=== PATIENT | male | born 1950 | race Caucasian/White ===

== ENCOUNTER → 2023-06-30 12:53 | Outpatient (REF) | payer MEDICARE, OTHER, SELFPAY | LOC: HWEVLT 12:53 | PROVIDERS: ATTENDING PHYSICIAN Radiology Vascular & Interventional Radiology | DX: I83.893 Varicose veins of bilateral lower extremities with other complications (principal) | CPT/HCPCS: 93970 ==

== ENCOUNTER → 2023-08-19 09:55 | Outpatient (REF) | payer MEDICARE, OTHER, SELFPAY ==
[2023-08-19 12:01] LABS: % Basophils 0.6 % (0-2); % Eosinophils 5.2 % (0-6); % Immature Granulocytes 0.4 % (0-0.5); % Lymphocytes 30.4 % (20.5-51.1); % Monocytes 6.4 % (1.7-9.3); Absolute Eosinophils 0.3 10^3/uL (0-0.7); Absolute Lymphocytes 1.6 10^3/uL (1.2-3.4); Absolute Monocytes 0.3 10^3/uL (0.1-0.6); Hematocrit 37.3 % (39.0-52.0); Hemoglobin 12.5 g/dL (13.0-18.0); Mean Corp Hgb Conc. 33.5 g/dL (33.0-37.0); Mean Corpuscular Hgb 32.7 pg (27.0-31.0); Mean Corpuscular Volume 97.6 fL (80.0-94.0); Mean Platelet Volume 10.9 fL (7.4-10.4); Nucleated Red Blood Cells % 0 % (-); Platelet Count 214 10^3/uL (130-400); Red Blood Cell Count 3.82 10^6/uL (4.70-6.10); Red Cell Dist. Width 14.4 % (11.5-14.5); Reticulocyte Count 1.5 % (0.4-2.8); White Blood Cell Count 5.2 10^3/uL (4.8-10.8)
[2023-08-19 12:16] LABS: Erythrocyte Sed Rate 15 mm/hour (0-20)
[2023-08-19 12:19] LABS: ALT (SGPT) 21 U/L (0-50); AST (SGOT) 29 U/L (17-59); Albumin 4.3 g/dl (3.5-5.0); Alkaline Phosphatase 55 U/L (38-126); Amylase 81 U/L (30-110); Blood Urea Nitrogen 27 mg/dl (9-20); Calcium 9.6 mg/dl (8.4-10.2); Carbon Dioxide 25 mmol/L (22-30); Chloride 107 mmol/L (98-107); Creatine Phosphokinase 118 U/L (55-170); GGTP 14 U/L (15-73); Glucose 85 mg/dl (70-99); HDL Cholesterol 85 mg/dl; Iron 114 ug/dl (49-181); LDL Cholesterol, Calculated 78 mg/dl; Lipase 113 U/L (23-300); Magnesium 1.8 mg/dl (1.6-2.3); Potassium 4.1 mmol/L (3.5-5.1); Sodium 137 mmol/L (135-145); Total Bilirubin 0.7 mg/dl (0.2-1.3); Total Cholesterol 177 mg/dl (50-199); Total Protein 6.6 g/dl (6.3-8.2); Triglyceride 72 mg/dl (10-149); Uric Acid 6.4 mg/dl (3.5-8.5); Very Low Density Lipoprotein 14 mg/dl (0-30); eGFR > 60.00
[2023-08-19 12:20] LABS: Glycohemoglobin (HgbA1c) 5.4 % (4.0-5.6)
[2023-08-19 12:23] LABS: C-Reactive Protein < 5.00 mg/L (0.0-10.00)
[2023-08-19 12:28] LABS: Percent Saturation 41 % (20-50); Total Iron Binding Capacity 272 ug/dl (261-462)
[2023-08-19 12:33] LABS: Urine Albumin Negative (Neg - Trace); Urine Bilirubin Negative (Negative); Urine Character Clear (Clear); Urine Color Yellow; Urine Glucose Negative (Negative); Urine Ketone Negative (Negative); Urine Leukocyte Negative (Negative); Urine Nitrite Negative (Negative); Urine Occult Blood Negative (Negative); Urine Specific Gravity 1.015 (<1.030); Urine Urobilinogen Negative (Neg - 1+)
[2023-08-19 12:43] LABS: Free T4 0.69 ng/dl (0.78-2.19); Vitamin D, 25-OH*** 61.2 ng/mL (30-80)
[2023-08-19 12:56] LABS: PSA, Total - Screen 0.97 ng/ml (0.0-4.0); TSH 1.39 uIU/ml (0.47-4.68)
[2023-08-19 13:00] LABS: Ferritin 83.7 ng/ml (17.9-464.0)
[2023-08-19 13:32] LABS: Folate > 20.0 ng/ml (2.76-20); Vitamin B12 > 1000 pg/ml (239-931)
[2023-08-21 05:45] LABS: Zinc 91.2 ug/dL (60.0-120.0)
[2023-08-22 16:12] LABS: Rheumatoid Agglutinin Less Than 10 IU (<10 IU)
== END ==
LOC: HWLAB 09:55
PROVIDERS: ATTENDING PHYSICIAN Family Medicine; OTHER PHYSICIAN Internal Medicine Hematology & Oncology; REFERRING PHYSICIAN Internal Medicine Rheumatology
DX: E11.9 Type 2 diabetes mellitus without complications (principal); E78.5 Hyperlipidemia, unspecified; R94.5 Abnormal results of liver function studies; R74.8 Abnormal levels of other serum enzymes; E03.9 Hypothyroidism, unspecified; M10.9 Gout, unspecified; E60 Dietary zinc deficiency; E55.9 Vitamin D deficiency, unspecified; M12.9 Arthropathy, unspecified; D64.9 Anemia, unspecified; E61.1 Iron deficiency; E83.42 Hypomagnesemia; N39.0 Urinary tract infection, site not specified; Z12.5 Encounter for screening for malignant neoplasm of prostate; E53.8 Deficiency of other specified B group vitamins
CPT/HCPCS: 80053; 80061; 81003; 82150; 82306; 82550; 82607; 82728; 82746; 82977; 83036; 83540; 83550; 83690; 83735; 84439; 84443; 84550; 84630; 85025; 85045; 85652; 86140; 86430; G0103

== ENCOUNTER → 2023-09-22 10:44 | Outpatient (REF) | payer OTHER, SELFPAY | LOC: HWRAD 10:44 | PROVIDERS: ATTENDING PHYSICIAN Family Medicine | DX: E03.9 Hypothyroidism, unspecified (principal); J20.9 Acute bronchitis, unspecified | CPT/HCPCS: 71046; 76536 ==

== ENCOUNTER → 2023-12-08 10:23 | Outpatient (REF) | payer OTHER, MEDICARE, SELFPAY ==
[2023-12-08 13:38] LABS: Free T4 0.84 ng/dl (0.78-2.19)
[2023-12-08 13:52] LABS: TSH 0.62 uIU/ml (0.47-4.68)
== END ==
LOC: HWLAB 10:23
PROVIDERS: ATTENDING PHYSICIAN Family Medicine; REFERRING PHYSICIAN Internal Medicine Hematology & Oncology
DX: E03.9 Hypothyroidism, unspecified (principal)
CPT/HCPCS: 36415; 84439; 84443

== ENCOUNTER → 2024-02-09 11:36 | Outpatient (REF) | payer MEDICARE, OTHER, SELFPAY ==
[2024-02-09 15:54] LABS: % Basophils 0.5 % (0-2); % Eosinophils 3.4 % (0-6); % Immature Granulocytes 0.3 % (0-0.5); % Lymphocytes 31.8 % (20.5-51.1); % Monocytes 6.8 % (1.7-9.3); % Neutrophils 57.2 % (42.2-75.2); Absolute Eosinophils 0.2 10^3/uL (0-0.7); Absolute Lymphocytes 1.9 10^3/uL (1.2-3.4); Absolute Monocytes 0.4 10^3/uL (0.1-0.6); Absolute Neutrophils 3.4 10^3/uL (1.4-6.5); Hematocrit 38.5 % (39.0-52.0); Hemoglobin 13.4 g/dL (13.0-18.0); Mean Corp Hgb Conc. 34.8 g/dL (33.0-37.0); Mean Corpuscular Hgb 35.2 pg (27.0-31.0); Mean Platelet Volume 11.8 fL (7.4-10.4); Nucleated Red Blood Cells % 0 % (-); Platelet Count 178 10^3/uL (130-400); Red Blood Cell Count 3.81 10^6/uL (4.70-6.10); Red Cell Dist. Width 14.4 % (11.5-14.5); White Blood Cell Count 5.9 10^3/uL (4.8-10.8)
[2024-02-09 16:10] LABS: Free T4 0.92 ng/dl (0.78-2.19)
[2024-02-09 16:24] LABS: TSH 0.82 uIU/ml (0.47-4.68)
== END ==
LOC: HWLAB 11:36
PROVIDERS: ATTENDING PHYSICIAN Nurse Practitioner Adult Health; FAMILY PHYSICIAN Family Medicine
DX: E03.9 Hypothyroidism, unspecified (principal); D64.9 Anemia, unspecified
CPT/HCPCS: 36415; 84439; 84443; 85025

== ENCOUNTER → 2024-09-11 11:12 | Outpatient (REF) | payer MEDICARE, OTHER, SELFPAY ==
[2024-09-11 15:48] LABS: % Basophils 0.4 % (0-2); % Eosinophils 3.5 % (0-6); % Immature Granulocytes 0.2 % (0-0.5); % Lymphocytes 33.1 % (20.5-51.1); % Monocytes 7.2 % (1.7-9.3); % Neutrophils 55.6 % (42.2-75.2); Absolute Eosinophils 0.2 10^3/uL (0-0.7); Absolute Lymphocytes 1.8 10^3/uL (1.2-3.4); Absolute Monocytes 0.4 10^3/uL (0.1-0.6); Hematocrit 39.5 % (39.0-52.0); Hemoglobin 13.1 g/dL (13.0-18.0); Mean Corp Hgb Conc. 33.2 g/dL (33.0-37.0); Mean Corpuscular Hgb 33.1 pg (27.0-31.0); Mean Corpuscular Volume 99.7 fL (80.0-94.0); Mean Platelet Volume 11.8 fL (7.4-10.4); Nucleated Red Blood Cells % 0 % (-); Platelet Count 182 10^3/uL (130-400); Red Blood Cell Count 3.96 10^6/uL (4.70-6.10); Red Cell Dist. Width 14.7 % (11.5-14.5); Reticulocyte Count 1.3 % (0.4-2.8); White Blood Cell Count 5.4 10^3/uL (4.8-10.8)
[2024-09-11 15:57] LABS: Erythrocyte Sed Rate 2 mm/hour (0-20)
[2024-09-11 15:58] LABS: ALT (SGPT) 22 U/L (0-50); AST (SGOT) 24 U/L (17-59); Albumin 4.2 g/dl (3.5-5.0); Alkaline Phosphatase 41 U/L (38-126); Amylase 77 U/L (30-110); Blood Urea Nitrogen 25 mg/dl (9-20); Calcium 10.1 mg/dl (8.4-10.2); Carbon Dioxide 30 mmol/L (22-30); Chloride 104 mmol/L (98-107); Creatine Phosphokinase 59 U/L (55-170); GGTP 16 U/L (15-73); Glucose 97 mg/dl (70-99); HDL Cholesterol 79 mg/dl; Iron 137 ug/dl (49-181); LDL Cholesterol, Calculated 84 mg/dl; Lipase 143 U/L (23-300); Magnesium 1.9 mg/dl (1.6-2.3); Potassium 4.5 mmol/L (3.5-5.1); Sodium 139 mmol/L (135-145); Total Bilirubin 0.6 mg/dl (0.2-1.3); Total Cholesterol 182 mg/dl (50-199); Total Protein 6.4 g/dl (6.3-8.2); Triglyceride 97 mg/dl (10-149); Uric Acid 5.7 mg/dl (3.5-8.5); Very Low Density Lipoprotein 19 mg/dl (0-30); eGFR > 60.00
[2024-09-11 16:01] LABS: C-Reactive Protein < 5.00 mg/L (0.0-10.00)
[2024-09-11 16:07] LABS: Percent Saturation 45 % (20-50); Total Iron Binding Capacity 298 ug/dl (261-462)
[2024-09-11 16:15] LABS: Urine Albumin Negative (Neg - Trace); Urine Bilirubin Negative (Negative); Urine Character Clear (Clear); Urine Color Yellow; Urine Glucose Negative (Negative); Urine Ketone Negative (Negative); Urine Leukocyte Negative (Negative); Urine Nitrite Negative (Negative); Urine Occult Blood Negative (Negative); Urine Urobilinogen Negative (Neg - 1+)
[2024-09-11 16:21] LABS: Free T4 0.82 ng/dl (0.78-2.19); Vitamin D, 25-OH*** 51.2 ng/mL (30-80)
[2024-09-11 16:34] LABS: PSA, Total - Screen 0.94 ng/ml (0.0-4.0); TSH 0.67 uIU/ml (0.47-4.68)
[2024-09-11 17:20] LABS: Microalbumin, Random Urine 0.9 mg/dl (0.6-1.7); Microalbumin/creatinine Ratio 10.5 mg/g
[2024-09-11 18:20] LABS: Ferritin 81.2 ng/ml (17.9-464.0)
[2024-09-11 18:51] LABS: Folate 14.6 ng/ml (2.76-20); Vitamin B12 > 1000 pg/ml (239-931)
[2024-09-12 08:55] LABS: Glycohemoglobin (HgbA1c) 5.2 % (4.0-5.6)
[2024-09-13 12:11] LABS: Rheumatoid Agglutinin Less Than 10 IU (<10 IU)
== END ==
LOC: HWLAB 11:12
PROVIDERS: ATTENDING PHYSICIAN Family Medicine
DX: E11.9 Type 2 diabetes mellitus without complications (principal); E78.5 Hyperlipidemia, unspecified; R94.5 Abnormal results of liver function studies; R74.8 Abnormal levels of other serum enzymes; E03.9 Hypothyroidism, unspecified; M10.9 Gout, unspecified; E60 Dietary zinc deficiency; E55.9 Vitamin D deficiency, unspecified; M12.9 Arthropathy, unspecified; D64.9 Anemia, unspecified; E83.42 Hypomagnesemia; E61.1 Iron deficiency; E53.8 Deficiency of other specified B group vitamins; N39.0 Urinary tract infection, site not specified; Z12.5 Encounter for screening for malignant neoplasm of prostate
CPT/HCPCS: 36415; 80053; 80061; 81003; 82043; 82150; 82306; 82550; 82570; 82607; 82728; 82746; 82977; 83036; 83540; 83550; 83690; 83735; 84439; 84443; 84550; 84630; 85025; 85045; 85652; 86140; 86430; G0103

== ENCOUNTER → 2024-12-20 13:32 | Outpatient (REF) | payer MEDICARE, OTHER, SELFPAY | LOC: HWRAD 13:32 | PROVIDERS: ATTENDING PHYSICIAN Family Medicine | DX: I82.493 Acute embolism and thrombosis of other specified deep vein of lower extremity, bilateral (principal) | CPT/HCPCS: 93970 ==